=== PATIENT | male | born 1980 | race Caucasian/White ===

== ENCOUNTER 2017-12-10 12:23 | Emergency (ER) | payer OTHER ==
[2017-12-10] MEDS ORDERED: diPHENhydraMINE PO* 50 MG PO ONE (13:27)
[2017-12-10] MEDS ORDERED: Ketorolac INJ* 30 MG/ML 1 ML VIAL IV PUSH ONE (13:27)
[2017-12-10] MEDS ORDERED: Metoclopramide IV* 5 MG/ML 2 ML VIAL IV ONE (13:27)
[2017-12-10] MEDS ORDERED: NS 0.9% 1000 ML* 1,000 ML IV ONE (13:27)
--- NOTE | 2017-12-10 13:31 | ED ---
Headache - HPI Summary HPI Summary: This patient is a 65 year old M presenting to [facility] with a chief complaint of left anterior headache since 08:00 today. Pt reports that it feels like my head has its own heartbeat. The patient rates the pain 8/10 in severity. Patient reports nausea, sensitivity to light, and sensitivity to sound. Pt says he gets migraines approximately once a month. He says that he tested positive for PPD and needs a chest x-ray to confirm. 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 - History Of Current Complaint Chief Complaint: EDHeadache Stated Complaint: MIGRAINE/+TB Time Seen by Provider: 12/10/17 13:20 Hx Obtained From: Patient Onset/Duration: Sudden Onset, Still Present Initially Headache Was: Severe Currently Pain Is: Current Pain Scale(0-10)= - 8, Severe Timing: Constant Character: Throbbing Location of Headache: Other: - Front left Associated Signs And Symptoms: Nausea, Other (Noted In Comments) - sensitivity to light and sensitivity to sound - Allergies/Home Medications Allergies/Adverse Reactions: Allergies Allergy/AdvReac Type Severity Reaction Status Date / Time No Known Allergies Allergy Verified 12/10/17 12:39 PMH/Surg Hx/FS Hx/Imm Hx Endocrine/Hematology History: Denies: Hx Diabetes Cardiovascular History: Denies: Hx Coronary Artery Disease Neurological History: Reports: Hx Migraine Infectious Disease History: Yes - Hepatitis C Infectious Disease History: Reports: Hx Hepatitis Denies: Traveled Outside the [place] in Last 30 Days - Family History Known Family History: Positive: Cardiac Disease - Social History Alcohol Use: None Hx Tobacco Use: Yes Smoking Status (MU): Current Every Day Smoker - 10 cigarettes a day Type: Cigarettes Review of Systems Positive: Other - sensitivity to light and sensitivity to sound Positive: Nausea Positive: Headache All Other Systems Reviewed And Are Negative: Yes Physical Exam - Summary Physical Exam Summary: Appearance: The patient is well-nourished in no acute distress and in no acute pain. Skin: The skin is warm and dry and skin color reflects adequate perfusion. HEENT: The head is normocephalic and atraumatic. The pupils are equal and reactive. The conjunctivae are clear and without drainage. Nares are patent and without drainage. Mouth reveals moist mucous membranes and the throat is without erythema and exudate. The external ears are intact. The ear canals are patent and without drainage. The tympanic membranes are intact. Neck: The neck is supple with full range of motion and non-tender. There are no carotid bruits. There is no neck vein distension. Respiratory: Chest is non-tender. Lungs are clear to auscultation and breath sounds are symmetrical and equal. Cardiovascular: Heart is regular rate and rhythm. There is no murmur or rub auscultated. There is no peripheral edema and pulses are symmetrical and equal. Abdomen: The abdomen is soft and non-tender. There are normal bowel sounds heard in all four quadrants and there is no organomegaly palpated. Musculoskeletal: There is no back tenderness noted. Extremities are non-tender with full range of motion. There is good capillary refill. There is no peripheral edema or calf tenderness elicited. Neurological: Patient is alert and oriented to person, place and time. The patient has symmetrical motor strength in all four extremities. Cranial nerves are grossly intact. Deep tendon reflexes are symmetrical and equal in all four extremities. Psychiatric: The patient has an appropriate affect and does not exhibit any anxiety or depression. Triage Information Reviewed: Yes Vital Signs On Initial Exam: Initial Vitals Temp Pulse Resp BP Pulse Ox 97.4 F 74 16 117/72 99 12/10/17 12:34 12/10/17 12:34 12/10/17 12:34 12/10/17 12:34 12/10/17 12:34 Vital Signs Reviewed: Yes Diagnostics - Vital Signs Vital Signs Temp Pulse Resp BP Pulse Ox 12/10/17 12:34 97.4 F 74 16 117/72 99 - Laboratory Lab Statement: Any lab studies that have been ordered have been reviewed, and results considered in the medical decision making process. - Radiology Chest X-Ray Radiology Interpretation Completed By: Radiologist - 13:43. NO ACTIVE CARDIOPULMONARY DISEASE. NO RADIOGRAPHIC EVIDENCE OF PULMONARY PARENCHYMAL TUBERCULOSIS. ED Physician has reviewed this imaging report. Headache Course/Dx - Course Course Of Treatment: Mr. Ambrosio presented with a left-sided headache which she described as "like a pulse in my head". He had mild photophobia and nausea and described the pain as a "migraine". He has these headaches about once a month although he has recently started Suboxone and feels that the headaches are coming more frequently. His exam was unremarkable, and IV was initiated and he was given Reglan, ketorolac, normal saline as well as by mouth Benadryl. He got significant relief of his headache and was discharged in stable condition. He apparently tested positive for TB on some sort of test and requested a chest x-ray which was obtained and also negative. - Diagnoses Provider Diagnoses: Headache Discharge - Sign-Out/Discharge Documenting (check all that apply): Patient Departure - Discharge Plan Condition: Stable Disposition: HOME Patient Education Materials: General Headache (ED) Referrals: [facility] [Outside] - 3 Days Additional Instructions: Follow up with [facility] in 1-3 days. If symptoms worsen, return to the ED. - Billing Disposition and Condition Condition: STABLE Disposition: Home - Attestation Statements Document Initiated by Scribe: Yes Documenting Scribe: Dev Farrell Provider For Whom Nehaibe is Documenting (Include Credential): Zaheer Sanders MD Scribe Attestation: Dev Spann, scribed for Zaheer Sanders MD on 12/10/17 at 1826. Scribe Documentation Reviewed: Yes Provider Attestation: The documentation as recorded by the Dev fowler accurately reflects the service I personally performed and the decisions made by , Zaheer Sanders MD
--- NOTE | 2017-12-10 13:46 | RAD ---
HISTORY: cough COMPARISONS: None VIEWS: 5: Frontal dual-energy and lateral views of the chest. FINDINGS: CARDIOMEDIASTINAL SILHOUETTE: The cardiomediastinal silhouette is normal. BLAKE: The blake are normal. PLEURA: The costophrenic angles are sharp. No pleural abnormalities are noted. LUNG PARENCHYMA: The lungs are clear. ABDOMEN: The upper abdomen is clear. There is no subphrenic gas. BONES AND SOFT TISSUES: No bone or soft tissue abnormalities are noted. OTHER: None. IMPRESSION: NO ACTIVE CARDIOPULMONARY DISEASE. NO RADIOGRAPHIC EVIDENCE OF PULMONARY PARENCHYMAL TUBERCULOSIS.
[2017-12-10 17:28] VITALS: BP 109/63
== END 2017-12-10 17:27 | disposition home or self-care (01) ==
LOC: ED 12:23
DX: R51 Headache (principal); R11.0 Nausea; R76.11 Nonspecific reaction to tuberculin skin test without active tuberculosis; F17.210 Nicotine dependence, cigarettes, uncomplicated
CPT/HCPCS: 71046; 96374; 96375; 99283; A9270-GY; J1885; J2765